=== PATIENT | male | born 1965 | race Caucasian/White ===

== ENCOUNTER 2023-12-05 15:00 | Outpatient (RCR) | payer BC, SELFPAY ==
--- NOTE | 2023-10-05 11:13 | URNOTE ---
Received request for prior auth for Cisplatin ([id number]), Aloxi ([id number]) and Emend ([id number]). Per automated message on [employer], prior auth is not required. Confirmation#[id number]
[2023-10-15 14:04] LABS: Basophils Absolute Auto 0.07 K/uL (0.00-0.30); Basophils Percent Auto 1.3 % (0.0-3.0); Eosinophils Absolute Auto 0.08 K/uL (0.00-0.50); Eosinophils Percent Auto 1.5 % (0.0-7.0); Hematocrit 37.2 % (37.0-53.0); Hemoglobin* 11.8 gm/dL (13.5-17.5); Immature Granulocytes Abs Auto 0.09 K/uL (0.00-0.30); Immature Granulocytes Pct Auto 1.6 %; Lymphocytes Percent Auto 34.6 % (20-44); Mean Corpuscular HGB Conc 32 gm/dL (32-36); Mean Corpuscular Hemoglobin 31 pg (26-34); Mean Corpuscular Volume 96 fL (80-100); Monocytes Percent Auto 14.9 % (0.0-11.0); Neutrophils Absolute Auto 2.53 K/uL (1.7-7.0); Neutrophils Percent Auto 46.1 % (42.0-72.0); Platelet Count* 462 K/uL (140-440); Red Blood Count 3.86 m/uL (4.30-5.90); White Blood Count* 5.49 K/uL (4.50-11.00)
[2023-10-15 14:23] LABS: Albumin* 4.1 g/dL (3.3-5.0); Chloride* 102 mmol/L (96-114)
[2023-10-15 14:24] LABS: Potassium* 4.4 mmol/L (3.6-5.1); Sodium* 136 mmol/L (135-149)
[2023-10-15 14:26] LABS: Alanine Aminotransferase* 48 U/L (4-50); Alkaline Phosphatase* 154 U/L (40-150); Anion Gap 7 mEq/L (7-15); Aspartate Amino Transferase* 43 U/L (12-35); Bilirubin Total* 0.2 mg/dL (0.1-1.5); Blood Urea Nitrogen* 18 mg/dL (7-30); Calcium* 8.7 mg/dL (8.4-10.6); Carbon Dioxide* 27 mmol/L (20-32); Creatinine* 0.5 mg/dL (0.5-1.5); Estimated Glomerular Filt Rate 117 ml/min; Glucose* 267 mg/dL (60-115); Total Protein* 6.6 g/dL (6.0-8.3)
[2023-10-15 14:42] LABS: Slide Review Reflex No
[2023-10-16 12:15] VITALS: BP 123/73; PULSE 50; RESP 16; TEMP 37.1; O2SAT 100
[2023-10-16] MEDS: 0.9 % SODIUM CHLORIDE 250 ml IV (12:19)
[2023-10-16] MEDS: SODIUM CHLORIDE 0.9 % (FLUSH) 10 ML SYRINGE IVF (12:19)
[2023-10-16] MEDS: MAGNESIUM SULFATE 2 GM, POTASSIUM CHLORIDE 10 MEQ in 0.9 % SODIUM CHLORIDE 1000 ml 1,00... IV (12:20)
[2023-10-16] MEDS: dexAMETHasone 10 MG in 0.9 % SODIUM CHLORIDE 100 ml 100 ML 404 MG IVPB (13:27)
[2023-10-16] MEDS: PALONOSETRON 0.25 MG/5 ML inj IV (13:27)
[2023-10-16] MEDS: FOSAPREPITANT 150 MG inj 150 MG in 0.9 % SODIUM CHLORIDE 250 ml 250 ML 510 MG IVPB (13:49)
--- NOTE | 2023-10-17 14:27 | ONC.NURNOTE ---
Entry from 10/16/23 pre chemo teaching completed for new cisplatin today reviewed possible side effects, after hours managment, ER if fever over 100.5, self care at home, treatment schedule reviewed contents of the new patient treatment binder discussed option of MNT- patient has been seen in [place] questions addressed consents and VIVIAN forms signed
--- NOTE | 2023-10-17 14:55 | ONC.NURNOTE ---
Left message for pt to see how he was feeling after receiving Cisplatin yesterday. Instructed pt to call with questions or concerns.
[2023-10-24 09:59] VITALS: BP 115/70; PULSE 59; RESP 16; TEMP 36.8; O2SAT 98
[2023-10-24 10:04] LABS: Albumin* 4.3 g/dL (3.3-5.0); Basophils Absolute Auto 0.04 K/uL (0.00-0.30); Basophils Percent Auto 0.8 % (0.0-3.0); Chloride* 99 mmol/L (96-114); Eosinophils Percent Auto 2.1 % (0.0-7.0); Hematocrit 41.7 % (37.0-53.0); Hemoglobin* 13.1 gm/dL (13.5-17.5); Immature Granulocytes Abs Auto 0.12 K/uL (0.00-0.30); Immature Granulocytes Pct Auto 2.5 %; Lymphocytes Percent Auto 16.6 % (20-44); Mean Corpuscular HGB Conc 31 gm/dL (32-36); Mean Corpuscular Hemoglobin 31 pg (26-34); Mean Corpuscular Volume 98 fL (80-100); Monocytes Percent Auto 14.9 % (0.0-11.0); Neutrophils Absolute Auto 3.01 K/uL (1.7-7.0); Neutrophils Percent Auto 63.1 % (42.0-72.0); Platelet Count* 243 K/uL (140-440); Potassium* 4.5 mmol/L (3.6-5.1); RDW Coefficient of Variation % 14.4 % (11.5-15.5); Red Blood Count 4.27 m/uL (4.30-5.90); Sodium* 137 mmol/L (135-149); White Blood Count* 4.77 K/uL (4.50-11.00)
[2023-10-24 10:06] LABS: Anion Gap 7 mEq/L (7-15); Bilirubin Total* 0.4 mg/dL (0.1-1.5); Carbon Dioxide* 31 mmol/L (20-32); Creatinine* 0.6 mg/dL (0.5-1.5); Est. Creatinine Clearance* 120.79; Estimated Glomerular Filt Rate 111 ml/min
[2023-10-24 10:07] LABS: Alanine Aminotransferase* 44 U/L (4-50); Alkaline Phosphatase* 134 U/L (40-150); Aspartate Amino Transferase* 49 U/L (12-35); Blood Urea Nitrogen* 17 mg/dL (7-30); Calcium* 9.2 mg/dL (8.4-10.6); Glucose* 213 mg/dL (60-115); Magnesium* 1.9 mg/dL (1.5-2.6)
[2023-10-24 10:22] LABS: Slide Review Reflex No
[2023-10-24] MEDS: PALONOSETRON 0.25 MG/5 ML inj IV (11:54)
[2023-10-24] MEDS: dexAMETHasone 10 MG in 0.9 % SODIUM CHLORIDE 100 ml 100 ML 404 MG IVPB (11:54)
[2023-10-24] MEDS: SODIUM CHLORIDE 0.9 % (FLUSH) 10 ML SYRINGE IVF (12:03)
[2023-10-24] MEDS: FOSAPREPITANT 150 MG inj 150 MG in 0.9 % SODIUM CHLORIDE 250 ml 250 ML 510 MG IVPB (12:16)
[2023-10-24] MEDS: MAGNESIUM SULFATE 2 GM, POTASSIUM CHLORIDE 10 MEQ in 0.9 % SODIUM CHLORIDE 1000 ml 1,00... IV (14:19)
[2023-10-31 09:20] LABS: Basophils Absolute Auto 0.04 K/uL (0.00-0.30); Basophils Percent Auto 0.8 % (0.0-3.0); Eosinophils Percent Auto 1.9 % (0.0-7.0); Hematocrit 38.1 % (37.0-53.0); Immature Granulocytes Abs Auto 0.03 K/uL (0.00-0.30); Immature Granulocytes Pct Auto 0.6 %; Lymphocytes Percent Auto 7.5 % (20-44); Mean Corpuscular HGB Conc 32 gm/dL (32-36); Mean Corpuscular Hemoglobin 31 pg (26-34); Mean Corpuscular Volume 97 fL (80-100); Monocytes Percent Auto 15.8 % (0.0-11.0); Neutrophils Percent Auto 73.4 % (42.0-72.0); Platelet Count* 194 K/uL (140-440); RDW Coefficient of Variation % 14.6 % (11.5-15.5); Red Blood Count 3.91 m/uL (4.30-5.90); White Blood Count* 5.18 K/uL (4.50-11.00)
[2023-10-31 09:22] LABS: Slide Review Reflex No
[2023-10-31 09:31] LABS: Chloride* 99 mmol/L (96-114)
[2023-10-31 09:32] LABS: Albumin* 3.9 g/dL (3.3-5.0); Sodium* 133 mmol/L (135-149)
[2023-10-31 09:33] LABS: Potassium* 4.6 mmol/L (3.6-5.1)
[2023-10-31 09:35] VITALS: BP 118/63; PULSE 58; RESP 16; TEMP 36.4; O2SAT 100
[2023-10-31 09:35] LABS: Alkaline Phosphatase* 116 U/L (40-150); Anion Gap 5 mEq/L (7-15); Aspartate Amino Transferase* 37 U/L (12-35); Bilirubin Total* 0.3 mg/dL (0.1-1.5); Blood Urea Nitrogen* 16 mg/dL (7-30); Carbon Dioxide* 29 mmol/L (20-32); Creatinine* 0.6 mg/dL (0.5-1.5); Est. Creatinine Clearance* 120.79; Estimated Glomerular Filt Rate 111 ml/min; Total Protein* 6.5 g/dL (6.0-8.3)
[2023-10-31 09:36] LABS: Alanine Aminotransferase* 32 U/L (4-50); Calcium* 8.8 mg/dL (8.4-10.6); Glucose* 253 mg/dL (60-115); Magnesium* 1.8 mg/dL (1.5-2.6)
[2023-10-31] MEDS: MAGNESIUM SULFATE 2 GM, POTASSIUM CHLORIDE 10 MEQ in 0.9 % SODIUM CHLORIDE 1000 ml 1,00... IV (10:24)
[2023-10-31] MEDS: PALONOSETRON 0.25 MG/5 ML inj IV (11:28)
[2023-10-31] MEDS: SODIUM CHLORIDE 0.9 % (FLUSH) 10 ML SYRINGE IVF (11:28)
[2023-10-31] MEDS: dexAMETHasone 10 MG in 0.9 % SODIUM CHLORIDE 100 ml 100 ML 404 MG IVPB (11:28)
[2023-10-31] MEDS: 0.9 % SODIUM CHLORIDE 250 ml IV (11:28)
[2023-10-31] MEDS: FOSAPREPITANT 150 MG inj 150 MG in 0.9 % SODIUM CHLORIDE 250 ml 250 ML 510 MG IVPB (11:48)
[2023-11-06 13:37] LABS: Basophils Absolute Auto 0.03 K/uL (0.00-0.30); Basophils Percent Auto 0.6 % (0.0-3.0); Eosinophils Percent Auto 1.9 % (0.0-7.0); Hematocrit 40.1 % (37.0-53.0); Hemoglobin* 12.6 gm/dL (13.5-17.5); Immature Granulocytes Abs Auto 0.03 K/uL (0.00-0.30); Immature Granulocytes Pct Auto 0.6 %; Lymphocytes Percent Auto 7.9 % (20-44); Mean Corpuscular HGB Conc 31 gm/dL (32-36); Mean Corpuscular Hemoglobin 31 pg (26-34); Mean Corpuscular Volume 98 fL (80-100); Monocytes Percent Auto 15.5 % (0.0-11.0); Neutrophils Percent Auto 73.5 % (42.0-72.0); Platelet Count* 232 K/uL (140-440); RDW Coefficient of Variation % 14.6 % (11.5-15.5); Red Blood Count 4.09 m/uL (4.30-5.90); White Blood Count* 5.16 K/uL (4.50-11.00)
[2023-11-06 13:45] LABS: Slide Review Reflex No
[2023-11-06 13:51] LABS: Albumin* 4.3 g/dL (3.3-5.0)
[2023-11-06 13:52] LABS: Chloride* 99 mmol/L (96-114); Potassium* 4.5 mmol/L (3.6-5.1); Sodium* 136 mmol/L (135-149)
[2023-11-06 13:54] LABS: Anion Gap 7 mEq/L (7-15); Aspartate Amino Transferase* 32 U/L (12-35); Bilirubin Total* 0.3 mg/dL (0.1-1.5); Carbon Dioxide* 30 mmol/L (20-32); Creatinine* 0.5 mg/dL (0.5-1.5); Est. Creatinine Clearance* 141.52; Estimated Glomerular Filt Rate 117 ml/min; Total Protein* 7.2 g/dL (6.0-8.3)
[2023-11-06 13:55] LABS: Alanine Aminotransferase* 29 U/L (4-50); Alkaline Phosphatase* 121 U/L (40-150); Blood Urea Nitrogen* 19 mg/dL (7-30); Calcium* 9.3 mg/dL (8.4-10.6); Glucose* 171 mg/dL (60-115); Magnesium* 1.7 mg/dL (1.5-2.6)
[2023-11-07 08:29] VITALS: BP 108/67; PULSE 68; RESP 16; TEMP 36.9; O2SAT 98
[2023-11-07] MEDS: MAGNESIUM SULFATE 2 GM, POTASSIUM CHLORIDE 10 MEQ in 0.9 % SODIUM CHLORIDE 1000 ml 1,00... IV (09:16)
[2023-11-07] MEDS: PALONOSETRON 0.25 MG/5 ML inj IV (10:24)
[2023-11-07] MEDS: dexAMETHasone 10 MG in 0.9 % SODIUM CHLORIDE 100 ml 100 ML 404 MG IVPB (10:24)
[2023-11-07] MEDS: FOSAPREPITANT 150 MG inj 150 MG in 0.9 % SODIUM CHLORIDE 250 ml 250 ML 510 MG IVPB (10:45)
[2023-11-07] MEDS: SODIUM CHLORIDE 0.9 % (FLUSH) 10 ML SYRINGE IVF (11:40)
[2023-11-07] MEDS: 0.9 % SODIUM CHLORIDE 250 ml IV (11:40)
--- NOTE | 2023-11-07 11:42 | ONC.NURNOTE ---
pt asked what to use on his slight pink eyes. per Gretchen Davis. ok to treat and use saline drops. enc pt to call thur or fri if worsen or no inprovement.
[2023-11-14 09:30] LABS: Basophils Absolute Auto 0.02 K/uL (0.00-0.30); Basophils Percent Auto 0.2 % (0.0-3.0); Eosinophils Absolute Auto 0.01 K/uL (0.00-0.50); Eosinophils Percent Auto 0.1 % (0.0-7.0); Hemoglobin* 12.1 gm/dL (13.5-17.5); Immature Granulocytes Abs Auto 0.03 K/uL (0.00-0.30); Immature Granulocytes Pct Auto 0.3 %; Lymphocytes Percent Auto 0.9 % (20-44); Mean Corpuscular HGB Conc 33 gm/dL (32-36); Mean Corpuscular Hemoglobin 32 pg (26-34); Mean Corpuscular Volume 97 fL (80-100); Monocytes Percent Auto 9.7 % (0.0-11.0); Neutrophils Percent Auto 88.8 % (42.0-72.0); Platelet Count* 259 K/uL (140-440); RDW Coefficient of Variation % 15.1 % (11.5-15.5); Red Blood Count 3.82 m/uL (4.30-5.90); Slide Review Reflex No; White Blood Count* 9.66 K/uL (4.50-11.00)
[2023-11-14 09:37] VITALS: BP 101/66; PULSE 74; RESP 16; TEMP 37.1; O2SAT 98
[2023-11-14 09:54] LABS: Albumin* 4.1 g/dL (3.3-5.0); Chloride* 96 mmol/L (96-114); Sodium* 130 mmol/L (135-149)
[2023-11-14 09:55] LABS: Potassium* 4.9 mmol/L (3.6-5.1)
[2023-11-14 09:56] LABS: Creatinine* 0.7 mg/dL (0.5-1.5); Est. Creatinine Clearance* 96.33; Estimated Glomerular Filt Rate 105 ml/min
[2023-11-14 09:57] LABS: Alanine Aminotransferase* 27 U/L (4-50); Alkaline Phosphatase* 129 U/L (40-150); Anion Gap 9 mEq/L (7-15); Aspartate Amino Transferase* 35 U/L (12-35); Bilirubin Total* 0.6 mg/dL (0.1-1.5); Blood Urea Nitrogen* 20 mg/dL (7-30); Carbon Dioxide* 25 mmol/L (20-32); Glucose* 338 mg/dL (60-115); Total Protein* 6.6 g/dL (6.0-8.3)
[2023-11-14 09:58] LABS: Magnesium* 1.5 mg/dL (1.5-2.6)
--- NOTE | 2023-11-14 10:37 | ONC.NURNOTE ---
Addendum entered by Gricel Pal RN 11/14/23 10:46: Dr. Godinez aware of NA 130. Fluids given and enc. salt in diet as he did previously. Original Note: Last week pt reported pink eyes and clear drainage. Checked with Gretchen Davis before treating him. I encouraged him to call if eyes worsens and see his Primary. Today pt states lt. eye still pink with green drainage up to yesturday. and sputum producted up to yesturday and green. states no other symptoms . no fever. he states he asked at the [facility] center if he should see a dr. he states they told him it wouldnt make a difference because its viral. 1 Liter NS today with encouragement that he see a eye doctor or primary. No treatment today per Dr. Godinez.
[2023-11-21 09:39] LABS: Basophils Percent Auto 0.7 % (0.0-3.0); Hematocrit 39.9 % (37.0-53.0); Hemoglobin* 12.7 gm/dL (13.5-17.5); Immature Granulocytes Pct Auto 2.2 %; Lymphocytes Percent Auto 9.3 % (20-44); Mean Corpuscular HGB Conc 32 gm/dL (32-36); Mean Corpuscular Hemoglobin 31 pg (26-34); Mean Corpuscular Volume 98 fL (80-100); Monocytes Percent Auto 17.9 % (0.0-11.0); Neutrophils Percent Auto 66.9 % (42.0-72.0); Platelet Count* 268 K/uL (140-440); RDW Coefficient of Variation % 15.7 % (11.5-15.5); Red Blood Count 4.06 m/uL (4.30-5.90); White Blood Count* 2.68 K/uL (4.50-11.00)
[2023-11-21 09:42] LABS: Slide Review Reflex No
[2023-11-21 09:50] VITALS: BP 106/60; PULSE 64; RESP 16; TEMP 35.9; O2SAT 100
[2023-11-21 09:53] LABS: Albumin* 4.3 g/dL (3.3-5.0); Chloride* 100 mmol/L (96-114); Potassium* 5.1 mmol/L (3.6-5.1); Sodium* 136 mmol/L (135-149)
[2023-11-21 09:55] LABS: Creatinine* 0.6 mg/dL (0.5-1.5); Est. Creatinine Clearance* 109.62; Estimated Glomerular Filt Rate 111 ml/min
[2023-11-21 09:56] LABS: Alanine Aminotransferase* 21 U/L (4-50); Alkaline Phosphatase* 121 U/L (40-150); Anion Gap 7 mEq/L (7-15); Aspartate Amino Transferase* 27 U/L (12-35); Bilirubin Total* 0.3 mg/dL (0.1-1.5); Blood Urea Nitrogen* 23 mg/dL (7-30); Calcium* 9.2 mg/dL (8.4-10.6); Carbon Dioxide* 29 mmol/L (20-32); Glucose* 291 mg/dL (60-115)
[2023-11-21 09:57] LABS: Magnesium* 1.9 mg/dL (1.5-2.6)
[2023-11-21] MEDS: MAGNESIUM SULFATE 2 GM, POTASSIUM CHLORIDE 10 MEQ in 0.9 % SODIUM CHLORIDE 1000 ml 1,00... IV (10:34)
[2023-11-21] MEDS: dexAMETHasone 10 MG in 0.9 % SODIUM CHLORIDE 100 ml 100 ML 404 MG IVPB (11:47)
[2023-11-21] MEDS: PALONOSETRON 0.25 MG/5 ML inj IV (12:12)
[2023-11-21] MEDS: FOSAPREPITANT 150 MG inj 150 MG in 0.9 % SODIUM CHLORIDE 250 ml 250 ML 510 MG IVPB (12:12)
[2023-11-27 09:47] LABS: Basophils Percent Auto 0.5 % (0.0-3.0); Eosinophils Percent Auto 1.8 % (0.0-7.0); Hematocrit 41.2 % (37.0-53.0); Hemoglobin* 13.2 gm/dL (13.5-17.5); Lymphocytes Percent Auto 4.3 % (20-44); Mean Corpuscular HGB Conc 32 gm/dL (32-36); Mean Corpuscular Hemoglobin 31 pg (26-34); Mean Corpuscular Volume 98 fL (80-100); Neutrophils Percent Auto 74.4 % (42.0-72.0); Platelet Count* 278 K/uL (140-440); RDW Coefficient of Variation % 15.7 % (11.5-15.5); Red Blood Count 4.21 m/uL (4.30-5.90); White Blood Count* 3.99 K/uL (4.50-11.00)
[2023-11-27 09:48] LABS: Slide Review Reflex No
[2023-11-27 10:00] LABS: Albumin* 4.4 g/dL (3.3-5.0)
[2023-11-27 10:01] LABS: Chloride* 98 mmol/L (96-114); Sodium* 134 mmol/L (135-149)
[2023-11-27 10:03] LABS: Anion Gap 6 mEq/L (7-15); Aspartate Amino Transferase* 34 U/L (12-35); Bilirubin Total* 0.5 mg/dL (0.1-1.5); Carbon Dioxide* 30 mmol/L (20-32); Creatinine* 0.7 mg/dL (0.5-1.5); Est. Creatinine Clearance* 93.96; Estimated Glomerular Filt Rate 105 ml/min
[2023-11-27 10:04] LABS: Alanine Aminotransferase* 26 U/L (4-50); Alkaline Phosphatase* 145 U/L (40-150); Blood Urea Nitrogen* 24 mg/dL (7-30); Calcium* 9.5 mg/dL (8.4-10.6); Glucose* 299 mg/dL (60-115); Magnesium* 1.8 mg/dL (1.5-2.6); Total Protein* 7.2 g/dL (6.0-8.3)
[2023-11-28 09:45] VITALS: BP 122/71; PULSE 58; RESP 16; TEMP 36.2; O2SAT 100
[2023-11-28] MEDS: MAGNESIUM SULFATE 2 GM, POTASSIUM CHLORIDE 10 MEQ in 0.9 % SODIUM CHLORIDE 1000 ml 1,00... IV (10:18)
[2023-11-28] MEDS: PALONOSETRON 0.25 MG/5 ML inj IV (11:26)
[2023-11-28] MEDS: dexAMETHasone 10 MG in 0.9 % SODIUM CHLORIDE 100 ml 100 ML 404 MG IVPB (11:26)
[2023-11-28] MEDS: FOSAPREPITANT 150 MG inj 150 MG in 0.9 % SODIUM CHLORIDE 250 ml 250 ML 510 MG IVPB (11:46)
== END 2024-04-12 23:59 | disposition home or self-care (01) ==
LOC: CCIC 15:00
PROVIDERS: Clinical Nurse Specialist; Visit Provider Internal Medicine Hematology & Oncology
DX: C76.0 Malignant neoplasm of head, face and neck (principal)
CPT/HCPCS: 36415; 80053; 83735; 85025; 96360; 96361; 96366; 96376; 96413; 99202; 99205; 99211; 99212; 99213; 99214; 99215; G0463; J1100; J1453; J2469; J3475; J3480; J7030; J7050; J7120; J9060